=== PATIENT | male | born 1965 | race Caucasian/White ===

== ENCOUNTER 2017-10-03 05:59 | Day surgery (SDC) | payer BC ==
[~2017-10-03] VITALS: Ht 175.3 cm; Wt 73.2 kg
--- NOTE | ~2017-10-03 | OP ---
PATIENT NAME: KIRSTIN WATSON MEDICAL RECORD: [id number] :65 LOCATION:[facility] ADMISSION DATE: SURGEON: FIORELLA ROMERO MD DATE OF OPERATION: 10/03/2017 PREOPERATIVE DIAGNOSIS: Hammertoe, left second toe. POSTOPERATIVE DIAGNOSIS: Hammertoe, left second toe. PROCEDURE: Hammertoe correction, left second toe. SURGEON: Fiorella Romero MD ANESTHESIA: General. INTRAOPERATIVE COMPLICATIONS: None. SUMMARY OF PATHOLOGIC FINDINGS: Essentially none. The patient did have a hammertoe that was causing corn and callus and it become very bothersome and asked for this to be straightened. OPERATIVE SUMMARY IN DETAIL: After obtaining the appropriate preoperative orthopedic surgery consent as well as anesthetic consultation, evaluation, and clearance, the patient was brought to the operating room and placed on the operating table in supine position. After general laryngeal mask airway was administered, the patient's left lower extremity was prepped and draped in routine sterile fashion. A small incision was made at the base of the MTP joint to release the flexor tendon of the second toe and the toe was then straightened out, held straight while an 0.045 K-wire was pinned to the DIP through the DIP middle phalanx. It was not pinned through the MCP joint. Having completed this, K-wires were clipped and covered with Jurgan balls. A small stab incision was closed with two 4-0 Prolenes. Sterile dressings were applied. Postop shoe was applied. The patient was awakened and taken to the recovery room in stable condition. All final needle and sponge counts were correct. TRANSINT:[id number] Voice Confirmation ID: [id number] DOCUMENT ID: [id number] FIORELLA ROMERO MD at 1402 CC: [id number] DICTATION DATE: 10/03/17 1005 COUNSELOR DORMITORY: 10/03/17 1205 [facility] 10/03/[address] [id number]
[2017-10-03 06:28] LABS: HEMATOCRIT 42.1 % (42.0-54.0); HEMOGLOBIN 14.4 g/dL (13.5-17.5); MCH 32.3 pg (26.0-34.0); MCHC 34.2 g/dL (31.0-37.0); MCV 94.4 fL (80.0-100.0); MEAN PLATELET VOLUME 9.4 fL (7.4-10.4); RBC 4.46 10x6/uL (4.20-6.10); RDW 12.9 % (11.5-14.5); WBC 5.1 10x3/uL (4.8-10.8)
[2017-10-03] MEDS ORDERED: COREG6.25 MG PO (07:03)
[2017-10-03] MEDS ORDERED: RANEXA1000 MG PO (07:04)
[2017-10-03] MEDS ORDERED: CRESTOR20 MG PO (07:04)
[2017-10-03 07:13] VITALS: BP 131/88; Ht 175.3 cm; Wt 73.2 kg
[2017-10-03] MEDS ORDERED: DILAUDID2 MG PO (10:02)
== END 2017-10-03 11:49 | disposition home or self-care (01) ==
LOC: D.OPS 05:59 → D.PAN 08:30 → D.OPS 11:49
PROVIDERS: Anesthesiology
DX: M20.42 Other hammer toe(s) (acquired), left foot (principal); L84 Corns and callosities; Z01.812 Encounter for preprocedural laboratory examination